=== PATIENT | male | born 1970 | race Caucasian/White ===

== ENCOUNTER 2020-11-30 03:36 | Inpatient (IN) | payer MEDICAID, OTHER ==
[~2020-11-30] VITALS: Ht 177.8 cm; Wt 88.5 kg
[2020-11-30] VITALS (32 sets, daily range): BP systolic 123–161; BP diastolic 75–99
--- NOTE | 2020-11-30 03:36 | NUR ---
BIBEMS C/O FENTANYL OVERDOSE. FEELING SOB. NARCAN 2MIG IM GIVEN BY EMS ACCOUNT INFORMATION CLERK PT AAOX4, NAD, PT AAOX4, DENIES ANY SOB. PLACED ON MONITOR. GOWNED, PT TO BED 11, VSS PENDING ER PROVIDER DORCAS
--- NOTE | 2020-11-30 03:45 | NUR ---
PT O2 SAT LOW, PLACED ON O2 4L NC
[2020-11-30] MEDS ORDERED: NALO4SPR NS (03:49)
[2020-11-30] MEDS ORDERED: ALBUTEROL FS 2.5 MG/3 ML VIAL.NEB ONE (03:55)
[2020-11-30] MEDS ORDERED: ALBUTEROL FS 2.5 MG/3 ML VIAL.NEB NEB ONE (04:00)
[2020-11-30 04:13] LABS: BASOPHILS % (AUTO) 0.4 % (0.0-2.0); EOSINOPHILS % (AUTO) 0.9 % (0.0-6.0); HEMATOCRIT 44 % (39-51); HEMOGLOBIN 15.3 g/dL (13.5-17.5); LYMPHOCYTES % (AUTO) 15.6 % (20.0-44.0); MEAN CORPUSCULAR HGB CONC 35 g/dl (31.0-36.0); MEAN CORPUSCULAR VOLUME 91 fL (80-96); MONOCYTES # (AUTO) 0.6 /CMM (0.1-1.30); MONOCYTES % (AUTO) 4.8 % (2.0-12.0); NEUTROPHILS # (AUTO) 9.9 /CMM (1.8-8.9); NEUTROPHILS % (AUTO) 78.3 % (43.0-81.0); PLATELET COUNT (AUTO) 277 /CMM (150-450); RED BLOOD CELL COUNT(AUTO) 4.87 MIL/uL (4.5-6.0); WHITE BLOOD COUNT (AUTO) 12.6 K/uL (4.3-11.0)
[2020-11-30 04:23] LABS: CREATININE 1.6 mg/dL (0.6-1.3); POTASSIUM 3.1 mmol/L (3.5-5.1)
--- NOTE | 2020-11-30 04:24 | NUR ---
RT Notes PT awake and alert placed on BIPAP via Large Face Mask per MD Narvaez on settings 15/5, rate 8, FIO2 50%. ABG to be taken in 20 mins. Ambubag at bedside. Addendum: 11/30/20 at 0702 by DALILA POND RT Amended: Links added.
[2020-11-30 04:36] LABS: ALBUMIN 3.6 g/dL (3.4-5.0); BILIRUBIN,DIRECT 0.1 mg/dL (0.0-0.2); BILIRUBIN,TOTAL 0.5 mg/dL (0.2-1.0)
[2020-11-30 05:00] LABS: ABG BASE EXCESS 2.8 mmol/L; ABG OXYGEN SATURATION 93.7 % (92.0-98.5); ABG PCO2 47.8 mmHg (35.0-45.0); ABG PH 7.394 (7.350-7.450); ABG PO2 75.8 mmHg (75.0-100.0); AaDO2 226.9 mmHg; COHb 0.6 % (0.5-1.5); MetHb 0.5 % (0.0-1.5); O2Hb 92.7 % (94.0-97.0); SITE, ABG Right Radial
[2020-11-30] MEDS ORDERED: ENOXAPARIN SODIUM 80 MG/0.8 ML DISP.SYRIN SQ ONE ×2 (05:30→06:32)
--- NOTE | 2020-11-30 05:30 | NUR ---
PT PLACED ON BIPAP
--- NOTE | 2020-11-30 07:24 | NUR ---
RECEIVED REPORT FROM KAMARI WEINBERG FOR DEUCE. PT IS AAOX4, ON BIPAP, V/S STABLE, KEPT RESTED AND COMFORTABLE. WILL CONTINUE TO MONITOR.
--- NOTE | 2020-11-30 07:45 | NUR ---
pt. is awake and alert placed into nasal cannula @ 3 lpm O2 flow. pt spo2 93% no increased work of breathing noted. bipap on standby @ bedside. Addendum: 11/30/20 at 0747 by ELAINE PORTILLO RT Amended: Links added.
--- NOTE | 2020-11-30 07:55 | NUR ---
RECEIVED REPORT GIVEN TO KAMARI MARION FOR DEUCE.
[2020-11-30] MEDS ORDERED: ALBUTEROL FS 2.5 MG/3 ML VIAL.NEB NEB PRN (08:00)
[2020-11-30] MEDS ORDERED: MORPHINE SULFATE INJ 2 MG/ML DISP.SYRIN IV PRN (08:00)
[2020-11-30] MEDS ORDERED: ACETAMINOPHEN 325 MG TABLET PO PRN (08:00)
[2020-11-30] MEDS ORDERED: ONDANSETRON HCL/PF 4 MG/2 ML VIAL IVP PRN (08:00)
--- NOTE | 2020-11-30 08:05 | NUR ---
RN NOTES RECEIVED PT FROM ER IN ROOM 257, PT IS A/Ox4, ON 4L O2 N/C , O2 SAT WNL, NO RESPIRATORY DISTRESS NOTED AT THIS TIME, ON TELE SR HR IN 80'S , PT IS ABLE TO USE URINAL , L AC IV SITE CLEAN, DRY AND INTACT, SR UP x3, CALL LIGHT WITHIN EASY REACH, BED LOCKED AND IN LOWEST POSITION, CONTINUE TO MONITOR.
[2020-11-30] MEDS ORDERED: ZOSYN IVPB 3.375 G in IV D5W 50ml IV ONE (09:00)
--- NOTE | 2020-11-30 11:50 | NUR ---
Damper Worker consult: director outpatient services consult requested for substance use. Patient is a 50-year-old, male. SW met with patient at his bedside in the intensive care unit. Patient was alert and oriented x4. Patient was calm and resting. Per chart, patient was brought in by ambulance on 11/30/20 for a Fentanyl overdose. Patient was prescribed Naloxone by Dr. Anthony Narvaez. This hospital social worker offered the patient medication-assisted treatment referrals. Patient declined the referrals stating, I dont need referrals, it was just a one-time thing. Patient stated that he currently lives with his significant other, Tawana, , at [address] [place] [address]; [phone]. Patient is currently unemployed but stated he receives [employer]. Patient stated that his significant other is a source of support. Patient stated that he is independent with his ADLs. SW asked patient about his history of substance use and patient reported Fentanyl use. Patient reported that he overdosed on Fentanyl and stated that this was a one-time use. Patient reported that his last use was six months ago. Per chart, patient has a history of tobacco use. SW assessed patients history of mental illness and patient denied history. Patient denied hallucinations or delusions. Patient denied suicidal or homicidal ideation. SW discussed discharge plan with the patient and patient stated that he will return to his prior living arrangements at home with his significant other, Tawana. Patient stated that his significant other can provide him with transportation. PLAN: Patient will return to his prior living arrangement at home. No further SS intervention at this time, however SW will remain available as needed. Medication-Assisted Treatment referrals: [facility]: [address] [place] [address] Intake hours: 5:45am9:00am, walk-ins Monday, Monday, [facility]: [address] [place] [address] Intake hours: 5:45am12:30pm, Monday and [facility]: [address] [place] [id number] Intake hours: 8:00am2:00pm, Monday through Monday
[2020-11-30] MEDS ORDERED: PIPERACILLIN /TAZOBACTAM 2.25 G in IV D5W 50 ML IV SCH (12:00)
[2020-11-30] MEDS ORDERED: PIPERACILLIN /TAZOBACTAM 3.375 G in IV D5W 100 ML IV SCH (14:00)
[2020-11-30] MEDS ORDERED: POTASSIUM CHLORIDE 20 MEQ TAB.PRT.SR PO ONE (16:30)
--- NOTE | 2020-11-30 18:30 | NUR ---
RN NOTES PT WANTS TO LEAVE AMA. HE STATED HAS HOME TO GO TO AND HAS VERY IMPORTANT WORK TO DO IN AM . EDUCATION GIVEN TO PT REGARDING THE PLAN OF CARE AND HOW IMPORTANT IS TO STAY WITH THE PLAN OF CARE . PT STILL WANTS TO LEAVING AMA AND GO HOME . AMA FORM SIGNED BY PT . NURSING SPECIAL DELIVERY CARRIER AND MAMMA LOGIST NOTIFIED . PT LEFT THE FLOOR AMBULATORY ACCOMPANIED BY HIS FRIEND .
[2020-12-01] MEDS ORDERED: PANTOPRAZOLE 40 MG TABLET.DR PO SCH (07:30)
== END 2020-11-30 18:39 | disposition home or self-care (01) | DRG 812 ==
LOC: ER 03:38 → ICU 07:53
PROVIDERS: ADMIT Nurse Practitioner Acute Care; ATTEND Nurse Practitioner Acute Care
DX: T40.411A Poisoning by fentanyl or fentanyl analogs, accidental (unintentional), initial encounter (principal); J96.01 Acute respiratory failure with hypoxia; J69.0 Pneumonitis due to inhalation of food and vomit; N17.0 Acute kidney failure with tubular necrosis; G92 Toxic encephalopathy; Y92.9 Unspecified place or not applicable; Z20.822 Contact with and (suspected) exposure to COVID-19; I70.0 Atherosclerosis of aorta; F19.20 Other psychoactive substance dependence, uncomplicated; R73.9 Hyperglycemia, unspecified; Z72.0 Tobacco use; E87.6 Hypokalemia
CPT/HCPCS: 36415; 36600; 71045-TC; 80048-TC; 80076-TC; 83880; 84484-TC; 85025-TC; 85378-TC; 87040-TC; 87081-TC; C9803; G0378; J1650; J2543; J3480; J3490; J7060